=== PATIENT | female | born 1980 | race Caucasian/White ===

== ENCOUNTER 2016-08-05 21:03 | Emergency (ER) | payer SELFPAY ==
[~2016-08-05] VITALS: Ht 165.1 cm; Wt 134.1 kg
[2016-08-05 22:03] LABS: AMPHETAMINE NEGATIVE (500 ng/mL); BARBITURATES NEGATIVE (200 ng/mL); BENZODIAZEPINES NEGATIVE (150 ng/mL); COCAINE NEGATIVE (150 ng/mL); METHADONE NEGATIVE (200 ng/mL); METHAMPHETAMINE NEGATIVE (500 ng/mL); OPIATES (MORPHINE) NEGATIVE (100 ng/mL); OXYCODONE NEGATIVE (100 ng/mL); PHENCYCLIDINE NEGATIVE (25 ng/mL); PROPOXYPHENE NEGATIVE (300 ng/mL); THC CANNABINOIDS NEGATIVE (50 ng/mL); TRICYCLIC ANTIDEPRESSANTS NEGATIVE (300 ng/mL)
[2016-08-05 22:04] LABS: INTERNAL CONTROLS VALID? YES
[2016-08-05 22:10] LABS: HEMATOCRIT 41.9 % (36.0-46.0); MCH 27.6 PG (29.0-34.0); MCHC 33.4 G/DL (30.0-36.0); MCV 82.5 FL (83-99); MEAN PLAT.VOLUME 10.4 uM^3 (9.5-12.4); PLATELET COUNT 309 K/uL (156-360); RBC DIS.WIDTH-CV 13.6 % (11.8-14.6); RBC DIS.WIDTH-SD 39.7 % (39-53); RED BLOOD COUNT 5.08 M/uL (3.80-5.20); WHITE BLOOD COUNT 9.3 K/uL (4.1-10.2)
[2016-08-05 22:18] LABS: CHLORIDE 106 mEq/L (99-109); POTASSIUM 3.3 mEq/L (3.7-5.4); SODIUM 141 mEq/L (136-147)
[2016-08-05 22:21] LABS: GLUCOSE 104 mg/dL (70-99)
[2016-08-05 22:22] LABS: ANION GAP 12 MEQ/L (2-14)
[2016-08-05 22:23] LABS: TOTAL BILIRUBIN 0.2 mg/dL (0.0-1.0)
[2016-08-05 22:24] LABS: GFR ESTIMATE (CALCULATED) > 59 mL/min/; SERUM ETHYL ALCOHOL 78 mg/dL
[2016-08-05 22:25] LABS: ALKALINE PHOSPHATASE 89 IU/L (3-129)
[2016-08-05 22:26] LABS: UREA NITROGEN (BUN) 8 mg/dL (9-23)
[2016-08-05 22:28] LABS: SALICYLATE < 5.0 MG/DL (15-30)
[2016-08-05 22:35] LABS: QUANTITATIVE HCG < 4.0 MIU/ML
[2016-08-06 15:25] VITALS: BP 122/86
== END 2016-08-06 15:36 ==
LOC: EME 21:03
PROVIDERS: Emergency Medicine
DX: F33.2 Major depressive disorder, recurrent severe without psychotic features (principal); T39.312A Poisoning by propionic acid derivatives, intentional self-harm, initial encounter; T44.992A Poisoning by other drug primarily affecting the autonomic nervous system, intentional self-harm, initial encounter; T45.0X2A Poisoning by antiallergic and antiemetic drugs, intentional self-harm, initial encounter
CPT/HCPCS: 80053; 84702; 85027; 90837; 93005; 99281; 99285; G0480

== ENCOUNTER 2017-02-28 20:18 | Inpatient (IN) | payer SELFPAY ==
[~2017-02-28] VITALS: Ht 165.1 cm; Wt 117.0 kg
[2017-02-28] MEDS ORDERED: VENLAFAXINE HC150 MG PO (20:23)
[2017-02-28] MEDS ORDERED: ATIVAN0.5 MG PO (20:23)
[2017-02-28] MEDS ORDERED: ATARAX,VISTARIL50 MG PO (20:24)
[2017-02-28] MEDS ORDERED: LEVOTHYROXINE125 MCG PO (20:24)
[2017-02-28] MEDS ORDERED: ZIPRASIDONE HCL40 MG PO (20:25)
[2017-02-28 20:43] LABS: MCH 28.3 PG (29.0-34.0); MCHC 33.6 G/DL (30.0-36.0); MCV 84.3 FL (83-99); MEAN PLAT.VOLUME 9.6 uM^3 (9.5-12.4); PLATELET COUNT 363 K/uL (156-360); RBC DIS.WIDTH-CV 12.7 % (11.8-14.6); RED BLOOD COUNT 5.34 M/uL (3.80-5.20)
[2017-02-28 20:52] LABS: CHLORIDE 110 mEq/L (99-109); POTASSIUM 3.1 mEq/L (3.7-5.4); SODIUM 145 mEq/L (136-147)
[2017-02-28 20:54] LABS: GLUCOSE 160 mg/dL (70-99)
[2017-02-28 20:55] LABS: ANION GAP 18 MEQ/L (2-14)
[2017-02-28 20:57] LABS: SERUM ETHYL ALCOHOL 198 mg/dL
[2017-02-28 20:58] LABS: GFR ESTIMATE (CALCULATED) > 59 mL/min/
[2017-02-28 21:00] LABS: UREA NITROGEN (BUN) 5 mg/dL (9-23)
[2017-02-28 21:01] LABS: SALICYLATE < 5.0 MG/DL (15-30)
[2017-02-28 23:18] LABS: ADD MIUA? YES; BILIRUBIN NEGATIVE; BLOOD NEGATIVE; COLOR YELLOW ((YELLOW)); GLUCOSE (STRIP) NEGATIVE; KETONES NEGATIVE; LEUKOCYTES NEGATIVE; NITRITE NEGATIVE; PROTEIN (STRIP) NEGATIVE; SPECIFIC GRAVITY 1.009 (1.000-1.030); UROBILINOGEN 0.2 MG/DL (0.2-1.0)
[2017-02-28 23:20] LABS: BACTERIA NONE SEEN /HPF; EPITHELIAL CELLS 2+ /HPF; MUCUS TRACE /LPF; RED BLOOD CELLS 0-5 /HPF (0-5); UCUL ADDED? NO; WHITE BLOOD CELLS 0-5 /HPF (0-5)
[2017-02-28 23:45] LABS: AMPHETAMINE NEGATIVE (500 ng/mL); BARBITURATES NEGATIVE (200 ng/mL); BENZODIAZEPINES NEGATIVE (150 ng/mL); COCAINE NEGATIVE (150 ng/mL); INTERNAL CONTROLS VALID? YES; METHADONE NEGATIVE (200 ng/mL); METHAMPHETAMINE NEGATIVE (500 ng/mL); OPIATES (MORPHINE) NEGATIVE (100 ng/mL); OXYCODONE NEGATIVE (100 ng/mL); PHENCYCLIDINE NEGATIVE (25 ng/mL); PROPOXYPHENE NEGATIVE (300 ng/mL); THC CANNABINOIDS NEGATIVE (50 ng/mL); TRICYCLIC ANTIDEPRESSANTS NEGATIVE (300 ng/mL)
[2017-03-01 06:00] VITALS: BP 139/77
[2017-03-01 07:55] VITALS: BP 133/59
[2017-03-01 15:51] VITALS: BP 138/70
[2017-03-02 07:53] VITALS: BP 122/66
[2017-03-02 15:19] VITALS: BP 161/104
[2017-03-02 15:23] VITALS: BP 150/65
[2017-03-03 07:58] VITALS: BP 164/90
[2017-03-03] MEDS ORDERED: BUSPAR10 MG PO (10:03)
[2017-03-03] MEDS ORDERED: EFFEXOR50 MG PO (10:03)
[2017-03-03] MEDS ORDERED: GEODON40 MG PO (10:03)
== END 2017-03-03 12:37 | disposition home or self-care (01) | DRG 885 ==
LOC: EME 20:18 → ENRESERV 03-01 05:24 → EDOF 03-01 05:32 → 1WEST 03-01 05:32
DX: F33.2 Major depressive disorder, recurrent severe without psychotic features (principal); Z68.41 Body mass index [BMI] 40.0-44.9, adult; T42.4X2A Poisoning by benzodiazepines, intentional self-harm, initial encounter; Z56.0 Unemployment, unspecified; E66.9 Obesity, unspecified
CPT/HCPCS: 71010; 80048; 81003; 84439; 84481; 85027; 90837; 93005; 97150 GO; 97165 GO; 99281; 99285; G0480; J2405; J7030

== ENCOUNTER 2018-02-01 16:00 | Emergency (ER) | payer SELFPAY ==
[~2018-02-01] VITALS: Ht 165.1 cm; Wt 132.3 kg
[~2018-02-01 16:00] MED LIST: ATARAX,VISTARIL50 MG PO; ATIVAN0.5 MG PO; BUSPAR10 MG PO; EFFEXOR50 MG PO; GEODON40 MG PO; LEVOTHYROXINE125 MCG PO; VENLAFAXINE HC150 MG PO; ZIPRASIDONE HCL40 MG PO
[2018-02-01 16:35] LABS: HEMATOCRIT 39.7 % (36.0-46.0); HEMOGLOBIN 13.1 G/DL (11.9-15.5); MCH 28.5 PG (29.0-34.0); MCV 86.3 FL (83-99); PLATELET COUNT 318 K/uL (156-360); RBC DIS.WIDTH-CV 13.4 % (11.8-14.6); RBC DIS.WIDTH-SD 42.4 % (39-53); WHITE BLOOD COUNT 11.4 K/uL (4.1-10.2)
[2018-02-01 16:43] LABS: ALBUMIN 3.8 g/dL (3.2-4.8)
[2018-02-01 16:44] LABS: CHLORIDE 102 mEq/L (99-109); POTASSIUM 3.6 mEq/L (3.7-5.4); SODIUM 136 mEq/L (136-147)
[2018-02-01 16:46] LABS: GLUCOSE 123 mg/dL (70-99); TOTAL PROTEIN 7.2 g/dL (6.4-8.3)
[2018-02-01 16:48] LABS: TOTAL BILIRUBIN 0.2 mg/dL (0.0-1.0)
[2018-02-01 16:49] LABS: ALKALINE PHOSPHATASE 103 IU/L (3-129)
[2018-02-01 16:50] LABS: CREATININE 0.7 mg/dL (0.6-1.3); GFR ESTIMATE (CALCULATED) > 59 mL/min/
[2018-02-01 16:51] LABS: AST (GOT) 16 IU/L (2-34); UREA NITROGEN (BUN) 10 mg/dL (9-23)
[2018-02-01 16:53] LABS: ALT (GPT) 17 IU/L (3-49); LIPASE 21 U/L (1.0-51.0)
[2018-02-01 16:59] LABS: QUANTITATIVE HCG < 4.0 MIU/ML
[2018-02-01] MEDS ORDERED: BENTYL10 MG PO (17:28)
[2018-02-01] MEDS ORDERED: ANTIVERT25 MG PO (17:28)
[2018-02-01] MEDS ORDERED: AUGMENTIN875 MG PO (17:28)
[2018-02-01] MEDS ORDERED: ZOFRAN ODT4 MG PO (17:28)
[2018-02-01 17:48] VITALS: BP 150/82
== END 2018-02-01 18:06 | disposition home or self-care (01) ==
LOC: EME 16:00
PROVIDERS: Nurse Practitioner Family
DX: J32.9 Chronic sinusitis, unspecified (principal); R10.9 Unspecified abdominal pain; E06.3 Autoimmune thyroiditis; F32.9 Major depressive disorder, single episode, unspecified
CPT/HCPCS: 74177; 80053; 83690; 84702; 85027; 99281; 99285; J7030